=== PATIENT | female | born 1985 | race African-American/Black ===

== ENCOUNTER → 2016-08-29 | Outpatient (REF) | LOC: WSOH 08:54 | DX: Z02.89 Encounter for other administrative examinations (principal) ==

== ENCOUNTER 2016-10-27 16:30 | Outpatient (RCR) | payer BC | END 2016-11-16 09:00 | disposition home or self-care (01) | LOC: WSPT 16:30 | DX: M25.811 Other specified joint disorders, right shoulder (principal) ==